=== PATIENT | female | born 1955 | race Caucasian/White ===

== ENCOUNTER 2024-06-14 13:07 | Emergency (ER) | payer OTHER ==
[~2024-06-14] VITALS: Ht 167.6 cm; Wt 85.3 kg
[2024-06-14] MEDS ORDERED: NAPR-1009 PO (14:35)
[2024-06-14 16:01] VITALS: BP 136/75; TEMP 97.9; O2SAT 97
== END 2024-06-14 16:02 | disposition home or self-care (01) ==
LOC: ER 13:10
DX: R07.89 Other chest pain (principal); E11.9 Type 2 diabetes mellitus without complications; I10 Essential (primary) hypertension; V43.52XA Car driver injured in collision with other type car in traffic accident, initial encounter; Y93.89 Activity, other specified; Y92.488 Other paved roadways as the place of occurrence of the external cause; Y99.8 Other external cause status
CPT/HCPCS: 71045-TC